=== PATIENT | male | born 1980 | race Caucasian/White ===

== ENCOUNTER 2018-08-28 11:37 | Emergency (ER) | payer OTHER ==
[~2018-08-28] VITALS: Ht 190.5 cm; Wt 86.2 kg
--- NOTE | ~2018-08-28 | EKG ---
[place], [place] ELECTROCARDIOGRAM REPORT NAME: TERRANCE BRAUN UNIT #: [id number] ROOM: DOCTOR: EPIPHANY DRAFT REPORT BIRTHDATE: [address] [facility] Test Date: 2018-08-28 Test Time: 12:05:09 Pat Name: TERRANCE BRAUN Department: Room: Gender: [employer]: : 1980 Requested By: VALE HECK Order Number: [id number] Reading MD: Nikolas Hay MD Measurements Intervals [place] Rate: 68 P: -4 [place]: 141 QRS: 32 QRSD: 105 T: 34 QT: 398 QTc: 424 Interpretive Statements Sinus rhythm Left ventricular hypertrophy Electronically Signed On 08-28-2018 13:03:58 PDT by Nikolas Hay MD CM:EKGRPT:ELECTROCARDIOGRAM REPORT [id number] VALE ARGUETA DRAFT REPORT VALE HECK DO
[~2018-08-28 11:37] MED LIST: ACYCLOVIR400 MG PO; ATARAX,VISTARIL50 MG PO; ATARAX25 MG PO; BACTRIM DS 8001 TA1 PO; CARBIDOPA/LEVOD1 TA1 PO; CEPHALEXIN500 M1 PO; CHLORDIAZEPOXID25 M1 PO; Carafate1 GM PO; DAYPRO600 M1 PO; DESENEX1 POW T; DICYCLOMINE HCL20 MG PO; EC NAPROSYN500 MG PO; FLEXERIL10 MG PO; HYDROCODONE BIT1 T11 PO; HYDROXYZINE PAM50 MG PO; KEFLEX500 MG PO; LOMOTIL 0.025 M1 TAB PO; MAXALT10 MG PO; MOTRIN100 M1 PO; MOTRIN800 MG PO; NAPROSYN250 MG PO; NAPROSYN500 MG PO; NKHM; NORCO 325 MG-51 TAB PO; NORFLEX100 MG PO; ONDANSETRON4 MG PO; OXYCODONE5 M1 PO; PARAFON FORTE500 MG PO; PERCOCET 325 MG1 TA2 PO; PROTONIX TR40 MG PO; PROTONIX40 MG PO; SEPTRA DS 800 M1 TAB PO; SOMA350 MG PO; STOMACH PILL; TRAMADOL HCL50 MG PO; TRIMOX500 MG PO; ULTRAM50 MG PO; VICODIN 5/500 505 M1 PO; VICODIN 5/500 505 MG PO; VICODIN 500 MG-1 TAB PO; VICODIN ES 7501 TAB PO; ZOFRAN 4 MG ED2 TAB PO; ZOFRAN ODT8 MG PO; ZOFRAN4 MG PO
[2018-08-28 12:19] LABS: BASO % 0.3 % (0.0-1.0); EOS # 0.1 10*3/uL (0.0-0.4); EOS % 0.9 % (1.0-4.0); HEMATOCRIT 35.8 % (42.0-52.0); HEMOGLOBIN 12.3 g/dl (14.0-18.0); LYMPH # 0.8 10*3/uL (1.3-4.4); LYMPH % 6.8 % (27.0-41.0); MEAN CELL VOLUME 91.8 fl (80.0-94.0); MEAN CORPUSCULAR HGB 31.5 pg (27.0-31.0); MEAN CORPUSCULAR HGB CONC 34.4 g/dl (33.0-37.0); MEAN PLATELET VOLUME 9.6 fl (9.6-12.3); MONO # 0.4 10*3/uL (0.1-1.0); MONO % 3.1 % (3.0-9.0); NEUT # 10.3 10*3/uL (2.3-7.9); NEUT % 88.4 % (47.0-73.0); PLATELET COUNT AUTOMATED 199 10*3/uL (130-400); RED CELL DISTRI WIDTH 13.2 % (0-14.5); WHITE BLOOD COUNT 11.7 10*3/uL (4.8-10.8)
[2018-08-28 12:36] LABS: ALBUMIN 3.4 gm/dl (3.1-4.5); ALKALINE PHOSPHATASE 40 U/L (45-117); BUN 19 mg/dl (7-24); CHLORIDE 103 mmol/L (98-107); CREATININE 1.15 mg/dL (0.70-1.30); POTASSIUM 3.6 mmol/L (3.5-5.1); SGOT/AST 22 IU/L (3-35); SGPT/ALT 28 U/L (12-78); SODIUM 137 mmol/L (136-145); TOTAL PROTEIN 7.1 gm/dL (6.4-8.2)
[2018-08-28 12:38] LABS: TROPONIN I < 0.015 ng/ml (<0.045)
[2018-08-28] MEDS ORDERED: LEVAQUIN750 M1 PO (13:25)
[2018-08-28] MEDS ORDERED: Motrin,Rufen800 MG PO (13:25)
== END 2018-08-28 13:57 | disposition home or self-care (01) ==
LOC: ED 11:37
PROVIDERS: Emergency Medicine
DX: J18.0 Bronchopneumonia, unspecified organism (principal); F17.200 Nicotine dependence, unspecified, uncomplicated; Z88.1 Allergy status to other antibiotic agents

== ENCOUNTER → 2018-08-31 | Outpatient (CLI) | payer OTHER ==
[~2018-08-31] MED LIST changes: +LEVAQUIN750 M1 PO; +Motrin,Rufen800 MG PO
== END | disposition home or self-care (01) ==
LOC: RESCLI 14:09
DX: J18.1 Lobar pneumonia, unspecified organism (principal); M79.10 Myalgia, unspecified site; F17.210 Nicotine dependence, cigarettes, uncomplicated; Z71.6 Tobacco abuse counseling; Z79.899 Other long term (current) drug therapy; Z88.8 Allergy status to other drugs, medicaments and biological substances

== ENCOUNTER → 2018-12-28 | Outpatient (CLI) | payer OTHER | END | disposition home or self-care (01) | LOC: RESCLI 02:47 | DX: M25.462 Effusion, left knee (principal); F17.210 Nicotine dependence, cigarettes, uncomplicated; Z79.899 Other long term (current) drug therapy; Z88.8 Allergy status to other drugs, medicaments and biological substances; V89.2XXD Person injured in unspecified motor-vehicle accident, traffic, subsequent encounter ==

== ENCOUNTER → 2019-08-11 | Outpatient (CLI) | payer OTHER | END | disposition home or self-care (01) | LOC: RESCLI 02:37 | DX: E78.5 Hyperlipidemia, unspecified (principal); N52.9 Male erectile dysfunction, unspecified; N50.819 Testicular pain, unspecified; G89.29 Other chronic pain; Z79.899 Other long term (current) drug therapy ==

== ENCOUNTER 2019-08-31 21:05 | Inpatient (IN) | payer OTHER ==
[~2019-08-31] VITALS: Ht 185.4 cm; Wt 86.2 kg
--- NOTE | ~2019-08-31 | EKG ---
[place], [place] ELECTROCARDIOGRAM REPORT NAME: TERRANCE BRAUN UNIT #: [id number] ROOM: [facility] DOCTOR: EPIPHANY DRAFT REPORT BIRTHDATE: [birth year] [facility] Test Date: 2019-08-31 Test Time: 23:21:27 Pat Name: TERRANCE BRAUN Department: Room: [facility] Gender: M Pediatrician/Medical Doctor: Andree Pelayo : 1980 Requested By: EMILI HOOPER Order Number: [id number] Reading MD: Kristin Grigsby MD Measurements Intervals [place] Rate: 81 P: 20 [place]: 136 QRS: 42 QRSD: 101 T: 37 QT: 364 QTc: 423 Interpretive Statements Sinus rhythm ST elev, probable normal early repol pattern Compared to ECG 06/19/2019 03:25:11 ST (T wave) deviation now present Electronically Signed On 09-01-2019 6:03:08 PDT by Kristin Grigsby MD CM:EKGRPT:ELECTROCARDIOGRAM REPORT [id number] EMILI HOOPER MD EPIPHANY DRAFT REPORT EMILI HOOPER MD
--- NOTE | ~2019-08-31 | PR ---
[place], [place] PROGRESS NOTE NAME: TERRANCE BRAUN [facility] #: [id number] UNIT #: [id number] ROOM: 528 DOCTOR: CASE ARMIJO MD,GLADYS BIRTHDATE: [birth year] DOS: 09/03/2019 SUBJECTIVE: He has been noted comfortable at this time without any acute distress. Cough has been noted intermittent with some sputum expectoration. Denies symptoms of chest pain, fever or chills. Denies symptoms of hemoptysis, nausea or vomiting. OBJECTIVE: VITAL SIGNS: Normal temperature, respiratory rate 20, heart rate 73, blood pressure 123/71. Pulse ox saturation on room air was 91% saturation recorded. HEENT: Examination shows head was atraumatic. EYES: No icterus. NECK: Supple. CARDIOVASCULAR: S1, S2 is audible. LUNGS: The patient was noted without any wheeze or crackle at the present time. ABDOMEN: Soft, nontender. Bowel sounds present. EXTREMITIES: No new change. IMAGING STUDIES: The chest x-ray yesterday noted with pulmonary infiltration, which has been noted decreased, but not completely resolved. The cultures of the bronchial washing noted light growth of MRSA. IMPRESSION: The patient with acute pneumonia, most likely from aspiration with methicillin-resistant Staphylococcus aureus with acute kidney injury, related to the illicit drugs or cocaine and the fentanyl. PLAN OF MANAGEMENT: Continuation of antibiotics, bronchodilators. Repeat chest x-ray in the morning to be done to assess the patient's current progression of the pulmonary infiltration and pneumonia. Based on that the patient's discharge planning could be started. Other supportive therapy, plan of management in the meantime to be continued. Usual medical management and other therapies. GLADYS WILLOUGHBY MD CM:PNTRANS 1402 [id number] GLADYS ARMIJO MD 09/03/19 1413 interface
--- NOTE | ~2019-08-31 | PR ---
[place], [place] PROGRESS NOTE NAME[id number] UNIT #: [id number] ROOM: 528 DOCTOR: CASE ARMIJO MD,GLADYS BIRTHDATE: [birth year] DOS: 09/05/2019 SUBJECTIVE: He has been doing well with current treatment with acute respiratory symptom, feeling better. Denies symptoms of chest pain, fever or chills at the present time. OBJECTIVE: VITAL SIGNS: Temperature recorded normal temperature, respiratory rate 18, heart rate 86, and blood pressure 144/86. Pulse oxygen saturation on room air 97% saturation. HEENT: Examination shows head was atraumatic. Eyes nonicterus. NECK: Supple. CARDIOVASCULAR: S1, S2 audible. LUNGS: The patient was noted without any wheeze or crackles. ABDOMEN: Soft, nontender. Bowel sounds present. IMPRESSION: 1. Resolving acute pneumonia. Radiologic ____ patient with MRSA. 2. Acute drug overdose, which has been improved. 3. Hemoptysis, resolved secondary to current acute pneumonia on admission. PLAN OF MANAGEMENT: No changes from the pulmonary standpoint. Discharge planning per primary care physician is pending. Continue other therapy, plan of management, care plan and treatment. GLADYS WILLOUGHBY MD CM:PNTRANS [id number] GLADYS ARMIJO MD 09/05/191811 interface
--- NOTE | ~2019-08-31 | PROC NOTE ---
[place], [place] PROCEDURE NOTE NAME: TERRANCE BRAUN UNIT #: [id number] ROOM: [facility] DOCTOR: CASE ARMIJO MD,GLADYS BIRTHDATE: [birth year] DOS: 09/01/2019 BRONCHOSCOPY REPORT PREOPERATIVE DIAGNOSES: The patient with hemoptysis, abnormal CT scan of chest with polysubstance drug overdose. POSTOPERATIVE DIAGNOSES: 1. There were no endobronchial lesions. 2. Small amount of secretion, which was noted blood-tinged with mucus secretions arising from the right lower lobe. 3. Endobronchial subsegment, there was no evidence of acute hemoptysis. COMPLICATIONS: None. PROCEDURE DESCRIPTION: Informed consent obtained from the patient. The patient was brought to the OR and placed in supine position. Conscious sedation administered by the Anesthesia Department. After that, airway introduced into the mouth. Bronchoscope advanced into the airway into laryngeal area. Epiglottis and vocal cords, were moving symmetrically with movements. Bronchoscope advanced to vocal cord and lower part of the tracheal lumen shows some clotted blood, only small amount mixed with mucus possibility of purulent secretion, which was tracking from the right lower lobe bronchial opening. There were no endobronchial obstructive lesion. After clearing secretions, no active bleeding noted in the right upper, right middle, right lower lobe bronchi were noted scattered amount of secretion without evidence of bleeding or other abnormalities. The bronchial washing was collected for cultures. The BAL specimen was also obtained in view of the right lower lobe, which will be sent for cultures and cell differential analysis. At this time, the patient does not require any changes in treatment, which was ordered previously based on the current bronchoscopy findings, monitor for any further hemoptysis, will be made. GLADYS WILLOUGHBY MD CM:PROCNOTE:PROCEDURE NOTE [id number] [id number] GLADYS ARMIJO MD
--- NOTE | ~2019-08-31 | PR ---
[place], [place] PROGRESS NOTE NAME: TERRANCE BRAUN [facility] #: [id number] UNIT #: [id number] ROOM: 528 DOCTOR: CASE ARMIJO MD,GLADYS BIRTHDATE: [birth year] DOS: 09/02/2019 SUBJECTIVE: The patient has been noted comfortable at this time, but complaining of body aches, most likely withdrawal of the illicit drug use by the patient. He has not been noted any further episodes of hemoptysis. Bronchoscopy done, which suggested BAL specimen was also obtained. He has not been reported any symptoms of acute chest pain, fever or chills as well. He had not been reporting any symptoms of headache or diplopia. Denies symptoms of nausea or vomiting. Remaining systems were reviewed with the patient, they were noted all negative. OBJECTIVE: VITAL SIGNS: Normal temperature, respiratory rate of 18, heart rate 79, blood pressure 112/58. Pulse oxygen saturation on 2 L nasal cannula 96% saturation. HEENT: Examination shows head was atraumatic. Eyes nonicterus. NECK: Supple. CARDIOVASCULAR: S1, S2 is audible. LUNGS: Scattered crackles in the lungs. ABDOMEN: Soft, nontender. Bowel sounds present. EXTREMITIES: The patient was noted without any wheezing. Scattered crackles of the lungs. ABDOMEN: Soft, nontender. Bowel sounds present. EXTREMITIES: The patient was noted without any edema, clubbing, or cyanosis. MUSCULOSKELETAL: Noted without any acute deformities. CENTRAL NERVOUS SYSTEM: Generally intact. LABORATORY DATA: Culture of the bronchial washing preliminary noted as normal mariaa. Final cultures are pending. Gram stain many white blood cells, epithelial cells, many gram-positive cocci in pairs, chains and clusters. The CBC that was done this morning: WBC count normal, hemoglobin 11.4, platelet count were normal. BMP done this morning noted normal BUN and creatinine, sodium, 131. The BAL specimen that was done yesterday noted 88% neutrophils. IMPRESSION: The patient with possibility of acute pneumonia, inflammatory condition with current pulmonary infiltration was noted with history of illicit drug use and hemoptysis as well. ____ used by the patient was also noted. PLAN OF MANAGEMENT: To await for the culture. All the bronchial washing. Continue the patient's current other medical treatment. Obtain a chest x-ray, PA and lateral view today to assess the progression of pulmonary infiltration. Usual care, other supportive therapy, plan of management, and care plan of treatment. [place], [place] PROGRESS NOTE NAME: TERRANCE BRAUN UNIT #: [id number] ROOM: 528 DOCTOR: GLADYS JENSEN MD BIRTHDATE: [birth year] GLADYS WILLOUGHBY MD CM:PNTRANS [id number] GLADYS ARMIJO MD 09/02/19 233 interface
--- NOTE | ~2019-08-31 | CON ---
[place], [place] REPORT OF CONSULTATION NAME: TERRANCE BRAUN UNIT #: [id number] ROOM: [facility] DOCTOR: CASE ARMIJO MD,GLADYS BIRTHDATE: [birth year] DOS: 09/01/2019 PULMONARY CONSULTATION, EVALUATION AND MANAGEMENT REASON FOR CONSULTATION: The consultation was done for assessment of the current acute respiratory failure with drug overdose, change in mental status, abnormal CT scan of the chest, and hemoptysis. HISTORY OF PRESENT ILLNESS: This is a 39-year-old white male patient with a history known for an illicit drug use that includes use of cocaine, crack, heroin and other illicit drugs. He has been brought to the hospital. The patient has been reported use of the fentanyl overdose and that he has been smoking in the evening. The patient has been given intranasal Narcan by the ambulance and then also received the Narcan in the Emergency Room. He was noted with a shallow breathing. The pulse oxygen saturation was noted as 98% on 6 liters nasal canula that has been started by the EMS. He has been admitted to the hospital for further care. The patient was noted intermittent change in mental status, drowsiness, sleepiness, arousable later on gradually to vocal commands. He has been noted with finding of hemoptysis one time on ____ by the nursing staff. He has not been noted any further episodes of hemoptysis at this time and not noted any acute distress. Pulse ox saturation on seeing recorded by the EMS as 81%. REVIEW OF SYSTEMS: CONSTITUTIONAL SYMPTOMS: The patient was noted still somewhat drowsy with wakefulness at times and not able to accurately get the history at this time in the Intensive Care Unit. PAST MEDICAL HISTORY: Noted with: 1. History of illicit drug use in the form of crack cocaine, heroin, fentanyl, smoking, and others. 2. History of tobacco use as well. SOCIAL HISTORY: Recorded as history of socially drinking alcohol, use of illicit drugs and tobacco use, a pack of cigarettes per day stated by the patient. FAMILY HISTORY: Noted father with history of methamphetamine dependence and abuse. Mother is living and reported as healthy. All the history was obtained by the medical staff physician and other physicians. PAST SURGICAL HISTORY: Reported some kind of surgery on the skeleton or bone, but details were unknown at this time. HOME MEDICATIONS: Reported as none. CURRENT MEDICATIONS: Administered during this hospitalization were noted as multivitamin, Lovenox for DVT prophylaxis, ibuprofen, Rocephin, and Zithromax. DRUG ALLERGIES: REPORTED ALLERGIC TO VANCOMYCIN. ALLERGIC DRUG REACTIONS [place], [place] REPORT OF CONSULTATION NAME: TERRANCE BRAUN UNIT #: [id number] ROOM: [facility] DOCTOR: GLADYS JENSEN MD BIRTHDATE: [birth year] WERE UNKNOWN. PHYSICAL EXAMINATION: GENERAL: A 39-year-old male patient noted arousable to vocal commands, mild drowsiness. Height of 6 feet 1 inch, weight 190 pounds, BMI 25. VITAL SIGNS: For the patient, which were recorded showed the temperature noted 100.8 degrees Fahrenheit to normal temperature and low-grade 99.9 degree Fahrenheit. The respiratory rate ranging between 18-15, heart rate 75, blood pressure 102/48-104/53. Pulse oxygen saturation recorded 81% on room air by the EMS, later on room air 88%, currently on nasal cannula of 3 liters this morning as 98%, earlier required 6 liters of oxygen to 100% nonrebreather mask. HEENT: Examination shows head was atraumatic. Eyes nonicterus. NECK: Supple. CARDIOVASCULAR SYSTEM: S1, S2 is audible. LUNGS: Noted with decreased breath sounds with questionable crackles without any wheeze. ABDOMEN: Soft, flat, nontender. Bowel sounds present. EXTREMITIES: Without edema, clubbing, cyanosis. VISIBLE SKIN: No lesions or rashes. CENTRAL NERVOUS SYSTEM: The patient has somewhat drowsiness, but the patient is moving all the extremities upon vocal commands. MUSCULOSKELETAL: Without any acute deformities. LABORATORY DATA: Assessed. CBC of 08/31/2019 in the Emergency Department; WBC count 13.9, hemoglobin 13.2, platelet count normal. CMP of 09/10/2019 was noted as normal BUN and creatinine, sodium 128. Remaining electrolytes and LFTs normal. The salicylate level 2.1, lactic acid 1.1 yesterday. Urine drug screen positive for amphetamines, cocaine, and opiates. CBC this morning; WBC count 11.7, hemoglobin 13.4, platelet count normal. PT/PTT normal this morning. CMP this morning; sodium 128. CPK this morning was obtained and noted at 253. Troponin first set was noted negative and the second set was pending. Chest x-ray that was done shows evidence of patchy infiltration noted in the lungs. CT scan of the chest that was done without contrast was personally reviewed, shows multiple areas of consolidation, alveolar filling noted usually in the central distribution as well as in the lower lungs. There were no pleural effusions. There was no significant pleural fluid. Minimal pleural fluid noted if it is on the right side. IMPRESSION: 1. The patient who has been currently noted acute drug overdose, current pulmonary abnormalities, acute hypoxic respiratory failure with polysubstance abuse, resulting in current pulmonary changes related to the cocaine, pulmonary edema resulting from the use of the opiates and others is very likely cause. 2. Rule out acute pneumonia and pulmonary hemorrhage resulting from the crack cocaine. 3. The patient with history of chronic nicotine dependence as well. PLAN OF CARE: Bronchoscopy planned to be done for assessment of the hemoptysis and current pulmonary abnormalities. Oxygen supplementation to continue maintain pulse ox 92% or greater. Monitor mental status closely. Do not feed [place], [place] REPORT OF CONSULTATION NAME: TERRANCE BRAUN UNIT #: [id number] ROOM: [facility] DOCTOR: GLADYS JENSEN MD BIRTHDATE: [birth year] the patient until the patient's mental status changes resolved completely to prevent aspirations. Bronchodilator to help mobilize secretions. DVT prophylaxis at this time will be continued unless it has been found that the patient has been noted active hemoptysis on bronchoscopy. Lovenox use will be discontinued. Supportive therapy, plan of management. DuoNeb q.i.d. dosing to help mobilize secretions. Continue empiric antibiotics and monitoring other culture results. Order the ESR for the patient as well. Other therapy, plan of management. Additional treatment changes continued to be made based on progression of the illness. Various other differential diagnosis of hemoptysis resulting for pulmonary disease remains in consideration. At this time, basic workup only needs to be done in case of any worsening of hemoptysis. Further additional workup needs to be performed accordingly. GLADYS WILLOUGHBY MD CM:CONSTR:REPORT OF CONSULTATION 1339 09/02/19 0021 interface
--- NOTE | ~2019-08-31 | PR ---
[place], [place] PROGRESS NOTE NAME: [facility]RAUN [id number] UN[facility] #: [id number] ROOM: 528 DOCTOR: CASE ARMIJO MD,GLADYS BIRTHDATE: [birth year] DOS: 09/04/2019 PULMONARY PROGRESS NOTE SUBJECTIVE: The patient has been noted comfortable at this time, resting on the bed this morning of assessment. He has been still noted with a cough, complaining of weakness and fatigue. Denies symptoms of fever or chills. Denies symptoms of abdominal pain. OBJECTIVE: VITAL SIGNS: For the patient which were recorded shows the temperature noted as normal. The respiratory rate recorded as 14, heart rate of 59, blood pressure of 120/61 recorded at midnight. Pulse oxygen saturation recorded on room air 96% saturation. HEENT: Examination shows head was atraumatic. Eyes nonicterus. NECK: Supple. CARDIOVASCULAR: S1, S2 is audible. LUNGS: Noted with scattered crackles, no wheeze. ABDOMEN: Soft, nontender. Bowel sounds present. EXTREMITIES: No new change. LABORATORY DATA: The patient's chest x-ray completed, PA and lateral view, this morning with resolving acute pulmonary infiltration in the lungs. Acid fast bacilli was noted negative smear with pending culture results. IMPRESSION: The patient resolution of hemoptysis, resolving acute pneumonia with methicillin-resistant Staphylococcus aureus, acute drug overdose on this admission was noted as well. PLAN OF TREATMENT: Discharge planning could be started with conversion to oral medication for the MRSA infection when it was necessary. Continue current other therapy, plan of management in progress, usual care. GLADYS WILLOUGHBY MD CM:PNTRANS 1034 [id number] GLADYS ARMIJO MD 09/04/19 1358 interface
[2019-08-31 21:26] VITALS: BP 116/67
[2019-08-31 23:34] LABS: BASO % 0.3 % (0.0-1.0); EOS # 0.1 10*3/uL (0.0-0.4); EOS % 0.4 % (1.0-4.0); HEMATOCRIT 39.4 % (42.0-52.0); HEMOGLOBIN 13.2 g/dl (14.0-18.0); LYMPH # 0.7 10*3/uL (1.3-4.4); MEAN CELL VOLUME 91.4 fl (80.0-94.0); MEAN CORPUSCULAR HGB 30.6 pg (27.0-31.0); MEAN CORPUSCULAR HGB CONC 33.5 g/dl (33.0-37.0); MEAN PLATELET VOLUME 9.8 fl (9.6-12.3); MONO % 7.3 % (3.0-9.0); NEUT % 86.5 % (47.0-73.0); PLATELET COUNT AUTOMATED 241 10*3/uL (130-400); RED BLOOD COUNT 4.31 10*6/uL (4.50-5.90); RED CELL DISTRI WIDTH 12.3 % (0-14.5); WHITE BLOOD COUNT 13.9 10*3/uL (4.8-10.8)
[2019-08-31 23:37] LABS: ALBUMIN 3.2 gm/dl (3.1-4.5); ALKALINE PHOSPHATASE 47 U/L (45-117); BUN 13 mg/dl (7-24); CHLORIDE 96 mmol/L (98-107); CREATININE 1.04 mg/dL (0.70-1.30); POTASSIUM 4.1 mmol/L (3.5-5.1); SGOT/AST 29 IU/L (3-35); SGPT/ALT 29 U/L (12-78); SODIUM 128 mmol/L (136-145); TOTAL PROTEIN 7.1 gm/dL (6.4-8.2); TROPONIN I 0.037 ng/ml (<0.045)
[2019-08-31 23:44] LABS: ACETAMINOPHEN (TYLENOL) < 5.0 ug/ml (10-30); ETHYL ALCOHOL < 3.0 mg/dl (<3)
[2019-08-31 23:57] VITALS: BP 129/77
[2019-09-01] VITALS (8 sets, daily range): BP systolic 97–128; BP diastolic 46–75
[2019-09-01 02:17] LABS: BILIRUBIN NEGATIVE (NEGATIVE); BLOOD NEGATIVE (NEGATIVE); CLARITY CLEAR (CLEAR); COLOR YELLOW (YELLOW); GLUCOSE TRACE (NEGATIVE); KETONE NEGATIVE (NEGATIVE); LEUKO ESTERASE NEGATIVE (NEGATIVE); NITRITE NEGATIVE (NEGATIVE); PH 6.5 (5.0-9.0); SPECIFIC GRAVITY 1.015 (1.005-1.030); UROBILINOGEN 0.2 E.U./dl (0.2-1.0)
[2019-09-01 02:25] LABS: URINE AMPHETAMINES > 1000 (1000ng/ml); URINE BARBITURATES < 200 (200ng/ml); URINE BENZODIAZEPINES < 200 (200ng/ml); URINE CANNABINOIDS (THC) < 50 (50ng/ml); URINE COCAINE > 300 (300ng/ml); URINE METHADONE < 300 (300ng/ml); URINE OPIATES > 300 (300ng/ml)
[2019-09-01 02:26] LABS: URINE PHENCYCLIDINE < 25 (25ng/ml)
[2019-09-01 09:05] LABS: BASO # 0.1 10*3/uL (0.0-0.1); BASO % 0.4 % (0.0-1.0); EOS # 0.1 10*3/uL (0.0-0.4); HEMATOCRIT 39.9 % (42.0-52.0); HEMOGLOBIN 13.4 g/dl (14.0-18.0); LYMPH # 1.2 10*3/uL (1.3-4.4); LYMPH % 10.2 % (27.0-41.0); MEAN CELL VOLUME 91.3 fl (80.0-94.0); MEAN CORPUSCULAR HGB 30.7 pg (27.0-31.0); MEAN CORPUSCULAR HGB CONC 33.6 g/dl (33.0-37.0); MEAN PLATELET VOLUME 9.6 fl (9.6-12.3); MONO # 0.8 10*3/uL (0.1-1.0); MONO % 6.9 % (3.0-9.0); NEUT # 9.5 10*3/uL (2.3-7.9); NEUT % 81.2 % (47.0-73.0); PLATELET COUNT AUTOMATED 205 10*3/uL (130-400); RED BLOOD COUNT 4.37 10*6/uL (4.50-5.90); RED CELL DISTRI WIDTH 12.2 % (0-14.5); WHITE BLOOD COUNT 11.7 10*3/uL (4.8-10.8)
[2019-09-01 09:16] LABS: ACT PARTIAL THROMBO TIME 32.5 SECONDS (20.0-32.1)
[2019-09-01 09:22] LABS: ALBUMIN 2.9 gm/dl (3.1-4.5); ALKALINE PHOSPHATASE 43 U/L (45-117); BUN 11 mg/dl (7-24); CHLORIDE 95 mmol/L (98-107); CHOLESTEROL 209 mg/dL (<200); CREATININE 0.95 mg/dL (0.70-1.30); HDL CHOLESTEROL 41 mg/dl (40-60); LDL CHOLESTEROL 155 mg/dL (9-159); PHOSPHOROUS 3.1 mg/dL (2.5-4.9); POTASSIUM 4.4 mmol/L (3.5-5.1); SGOT/AST 18 IU/L (3-35); SGPT/ALT 22 U/L (12-78); SODIUM 128 mmol/L (136-145); TOTAL PROTEIN 6.6 gm/dL (6.4-8.2); TRIGLYCERIDES 67 mg/dl (<150); VLDL CHOLESTEROL 13 mg/dL (6-40)
[2019-09-01 09:23] LABS: TROPONIN I < 0.015 ng/ml (<0.045)
[2019-09-01 09:28] LABS: THYROID STIM HORMONE (HS) 0.619 uIU/ml (0.358-4.75)
[2019-09-01 10:08] LABS: VITAMIN D, 25-HYDROXY 16.6 ng/mL (30-100)
[2019-09-01 12:39] LABS: BF LYMPHOCYTES 2 %; BF MACROPHAGES 6 %; BF MONOCYTES 4 %; BF NEUTROPHILS 88 %
[2019-09-01 12:54] LABS: CPK 231 U/L (39-308)
[2019-09-01 12:55] LABS: TROPONIN I < 0.015 ng/ml (<0.045)
[2019-09-02] VITALS: BP 111/60
[2019-09-02 05:42] LABS: BUN 8 mg/dl (7-24); CHLORIDE 99 mmol/L (98-107); CREATININE 0.88 mg/dL (0.70-1.30); SODIUM 131 mmol/L (136-145)
[2019-09-02 06:13] LABS: BASO % 0.5 % (0.0-1.0); EOS # 0.4 10*3/uL (0.0-0.4); HEMATOCRIT 34.7 % (42.0-52.0); HEMOGLOBIN 11.4 g/dl (14.0-18.0); LYMPH # 0.7 10*3/uL (1.3-4.4); LYMPH % 7.4 % (27.0-41.0); MEAN CELL VOLUME 91.3 fl (80.0-94.0); MEAN CORPUSCULAR HGB CONC 32.9 g/dl (33.0-37.0); MEAN PLATELET VOLUME 10.3 fl (9.6-12.3); MONO # 0.7 10*3/uL (0.1-1.0); MONO % 7.4 % (3.0-9.0); NEUT # 7.1 10*3/uL (2.3-7.9); NEUT % 80.5 % (47.0-73.0); PLATELET COUNT AUTOMATED 203 10*3/uL (130-400); RED CELL DISTRI WIDTH 12.2 % (0-14.5); WHITE BLOOD COUNT 8.8 10*3/uL (4.8-10.8)
[2019-09-02 08:00] VITALS: BP 111/58
[2019-09-02 12:00] VITALS: BP 102/58
[2019-09-02 14:06] LABS: ACID FAST SPEC PROCESSING Concentration (.)
[2019-09-02 16:00] VITALS: BP 124/64
[2019-09-02 20:00] VITALS: BP 108/67
[2019-09-03] VITALS: BP 121/62
[2019-09-03 07:16] LABS: BASO % 0.4 % (0.0-1.0); EOS # 0.5 10*3/uL (0.0-0.4); EOS % 6.2 % (1.0-4.0); HEMATOCRIT 33.3 % (42.0-52.0); HEMOGLOBIN 11.1 g/dl (14.0-18.0); LYMPH # 1.1 10*3/uL (1.3-4.4); LYMPH % 14.7 % (27.0-41.0); MEAN CORPUSCULAR HGB 30.7 pg (27.0-31.0); MEAN CORPUSCULAR HGB CONC 33.3 g/dl (33.0-37.0); MEAN PLATELET VOLUME 9.5 fl (9.6-12.3); MONO # 0.7 10*3/uL (0.1-1.0); MONO % 9.1 % (3.0-9.0); NEUT # 5.2 10*3/uL (2.3-7.9); NEUT % 69.5 % (47.0-73.0); PLATELET COUNT AUTOMATED 209 10*3/uL (130-400); RED BLOOD COUNT 3.62 10*6/uL (4.50-5.90); RED CELL DISTRI WIDTH 12.3 % (0-14.5); WHITE BLOOD COUNT 7.5 10*3/uL (4.8-10.8)
[2019-09-03 07:57] LABS: BUN 9 mg/dl (7-24); CHLORIDE 105 mmol/L (98-107); CREATININE 0.83 mg/dL (0.70-1.30); SODIUM 136 mmol/L (136-145)
[2019-09-03 08:00] VITALS: BP 123/71
[2019-09-03 12:00] VITALS: BP 119/72
[2019-09-03 16:00] VITALS: BP 123/72
[2019-09-03 20:00] VITALS: BP 117/60; BP 130/82
[2019-09-04] VITALS: BP 120/61
[2019-09-04 07:05] LABS: BASO % 0.5 % (0.0-1.0); EOS # 0.4 10*3/uL (0.0-0.4); EOS % 5.6 % (1.0-4.0); HEMATOCRIT 36.9 % (42.0-52.0); HEMOGLOBIN 12.5 g/dl (14.0-18.0); LYMPH # 1.3 10*3/uL (1.3-4.4); LYMPH % 16.5 % (27.0-41.0); MEAN CELL VOLUME 90.7 fl (80.0-94.0); MEAN CORPUSCULAR HGB 30.7 pg (27.0-31.0); MEAN CORPUSCULAR HGB CONC 33.9 g/dl (33.0-37.0); MEAN PLATELET VOLUME 9.5 fl (9.6-12.3); MONO # 0.8 10*3/uL (0.1-1.0); MONO % 9.9 % (3.0-9.0); NEUT # 5.1 10*3/uL (2.3-7.9); NEUT % 67.2 % (47.0-73.0); PLATELET COUNT AUTOMATED 258 10*3/uL (130-400); RED BLOOD COUNT 4.07 10*6/uL (4.50-5.90); WHITE BLOOD COUNT 7.6 10*3/uL (4.8-10.8)
[2019-09-04 07:22] LABS: CHLORIDE 105 mmol/L (98-107); POTASSIUM 4.3 mmol/L (3.5-5.1); SODIUM 136 mmol/L (136-145)
[2019-09-04 07:28] LABS: BUN 8 mg/dl (7-24); CREATININE 0.81 mg/dL (0.70-1.30)
[2019-09-04 08:00] VITALS: BP 130/72
[2019-09-04 10:00] VITALS: BP 120/60
[2019-09-04 10:07] LABS: ANGIOTENSIN-CONVERTING ENZYME 23 U/L (14-82)
[2019-09-04 16:00] VITALS: BP 120/63
[2019-09-04 16:07] LABS: ATYPICAL PANCA <1:20 titer (Neg:<1:20); CYTOPLASMIC (C-ANCA) <1:20 titer (Neg:<1:20)
[2019-09-04 20:00] VITALS: BP 120/67
[2019-09-05] VITALS: BP 137/78
[2019-09-05 08:00] VITALS: BP 144/86
[2019-09-05 12:00] VITALS: BP 141/85
[2019-09-05] MEDS ORDERED: DOXYCYCLINE100 M3 PO (17:03)
[2019-10-13 10:09] LABS: ACID FAST CULTURE Negative (.)
== END 2019-09-05 17:56 | disposition home or self-care (01) | DRG 720 ==
LOC: ED 21:05 → ICCU 23:52 → EDHOLD 23:52 → 5E 23:52 → ICCU 09-01 00:15 → 5E 09-02 14:45
PROVIDERS: Emergency Medicine Emergency Medical Services; Hospitalist; Internal Medicine; Internal Medicine Critical Care Medicine; Student in an Organized Health Care Education/Training Program; ADMIT Internal Medicine
PROC: 0B9F8ZX Drainage of Right Lower Lung Lobe, Via Natural or Artificial Opening Endoscopic, Diagnostic (ICD-10-PCS; principal; 2019-09-01)
PROC: 0B998ZZ Drainage of Lingula Bronchus, Via Natural or Artificial Opening Endoscopic (ICD-10-PCS; 2019-09-01)
PROC: 0B948ZZ Drainage of Right Upper Lobe Bronchus, Via Natural or Artificial Opening Endoscopic (ICD-10-PCS; 2019-09-01)
PROC: 0B988ZZ Drainage of Left Upper Lobe Bronchus, Via Natural or Artificial Opening Endoscopic (ICD-10-PCS; 2019-09-01)
PROC: 0B958ZZ Drainage of Right Middle Lobe Bronchus, Via Natural or Artificial Opening Endoscopic (ICD-10-PCS; 2019-09-01)
PROC: 0B938ZZ Drainage of Right Main Bronchus, Via Natural or Artificial Opening Endoscopic (ICD-10-PCS; 2019-09-01)
PROC: 0B978ZZ Drainage of Left Main Bronchus, Via Natural or Artificial Opening Endoscopic (ICD-10-PCS; 2019-09-01)
PROC: 0B968ZZ Drainage of Right Lower Lobe Bronchus, Via Natural or Artificial Opening Endoscopic (ICD-10-PCS; 2019-09-01)
PROC: 0B9B8ZZ Drainage of Left Lower Lobe Bronchus, Via Natural or Artificial Opening Endoscopic (ICD-10-PCS; 2019-09-01)
DX: A41.9 Sepsis, unspecified organism (principal); T40.4X4A Poisoning by other synthetic narcotics, undetermined, initial encounter; E87.1 Hypo-osmolality and hyponatremia; E43 Unspecified severe protein-calorie malnutrition; J15.212 Pneumonia due to Methicillin resistant Staphylococcus aureus; D64.9 Anemia, unspecified; F11.23 Opioid dependence with withdrawal; E87.8 Other disorders of electrolyte and fluid balance, not elsewhere classified; J96.01 Acute respiratory failure with hypoxia; F32.9 Major depressive disorder, single episode, unspecified; E55.9 Vitamin D deficiency, unspecified; E53.8 Deficiency of other specified B group vitamins; E78.5 Hyperlipidemia, unspecified; F17.200 Nicotine dependence, unspecified, uncomplicated; Z88.1 Allergy status to other antibiotic agents; Z87.11 Personal history of peptic ulcer disease; Z87.01 Personal history of pneumonia (recurrent); Z82.49 Family history of ischemic heart disease and other diseases of the circulatory system; Z82.5 Family history of asthma and other chronic lower respiratory diseases; Z81.3 Family history of other psychoactive substance abuse and dependence; Y92.89 Other specified places as the place of occurrence of the external cause; Z68.25 Body mass index [BMI] 25.0-25.9, adult

== ENCOUNTER 2019-12-19 18:25 | Emergency (ER) | payer OTHER ==
[~2019-12-19 18:25] MED LIST changes: +DOXYCYCLINE100 M3 PO
[2019-12-19 19:07] LABS: ALBUMIN 3.8 gm/dl (3.1-4.5); ALKALINE PHOSPHATASE 57 U/L (45-117); BUN 24 mg/dl (7-24); CHLORIDE 99 mmol/L (98-107); CREATININE 1.51 mg/dL (0.70-1.30); POTASSIUM 4.1 mmol/L (3.5-5.1); SGOT/AST 22 IU/L (3-35); SGPT/ALT 24 U/L (12-78); SODIUM 134 mmol/L (136-145)
[2019-12-19 19:11] LABS: ETHYL ALCOHOL < 3.0 mg/dl (<3)
[2019-12-19 19:16] LABS: BASO # 0.1 10*3/uL (0.0-0.1); BASO % 0.7 % (0.0-1.0); EOS # 0.6 10*3/uL (0.0-0.4); EOS % 6.9 % (1.0-4.0); HEMATOCRIT 38.6 % (42.0-52.0); HEMOGLOBIN 12.5 g/dl (14.0-18.0); LYMPH # 1.4 10*3/uL (1.3-4.4); LYMPH % 16.7 % (27.0-41.0); MEAN CORPUSCULAR HGB 29.5 pg (27.0-31.0); MEAN CORPUSCULAR HGB CONC 32.4 g/dl (33.0-37.0); MEAN PLATELET VOLUME 9.1 fl (9.6-12.3); MONO # 0.8 10*3/uL (0.1-1.0); MONO % 9.6 % (3.0-9.0); NEUT # 5.6 10*3/uL (2.3-7.9); PLATELET COUNT AUTOMATED 256 10*3/uL (130-400); RED BLOOD COUNT 4.24 10*6/uL (4.50-5.90); RED CELL DISTRI WIDTH 12.9 % (0-14.5); WHITE BLOOD COUNT 8.4 10*3/uL (4.8-10.8)
== END 2019-12-19 20:03 | disposition left against medical advice (07) ==
LOC: ED 18:25
PROVIDERS: Emergency Medicine
DX: T40.1X1A Poisoning by heroin, accidental (unintentional), initial encounter (principal); F17.200 Nicotine dependence, unspecified, uncomplicated; F41.9 Anxiety disorder, unspecified; K21.9 Gastro-esophageal reflux disease without esophagitis; F32.9 Major depressive disorder, single episode, unspecified; G43.909 Migraine, unspecified, not intractable, without status migrainosus; Z79.899 Other long term (current) drug therapy; Z88.8 Allergy status to other drugs, medicaments and biological substances; Y92.89 Other specified places as the place of occurrence of the external cause

== ENCOUNTER 2021-10-05 14:38 | Emergency (ER) | payer OTHER | END 2021-10-05 17:00 | disposition home or self-care (01) | LOC: ED 14:38 | DX: S22.31XA Fracture of one rib, right side, initial encounter for closed fracture (principal); Z88.1 Allergy status to other antibiotic agents; Y08.89XA Assault by other specified means, initial encounter; Y93.89 Activity, other specified; Y92.89 Other specified places as the place of occurrence of the external cause; Y99.8 Other external cause status ==

== ENCOUNTER 2022-07-01 22:36 | Emergency (ER) | payer OTHER ==
[~2022-07-01] VITALS: Ht 190.5 cm; Wt 72.6 kg
== END 2022-07-02 03:39 | disposition home or self-care (01) ==
LOC: ED 22:36
DX: T40.1X1A Poisoning by heroin, accidental (unintentional), initial encounter (principal); E78.5 Hyperlipidemia, unspecified; Z88.1 Allergy status to other antibiotic agents; F17.200 Nicotine dependence, unspecified, uncomplicated; Y92.89 Other specified places as the place of occurrence of the external cause

== ENCOUNTER 2022-11-11 15:18 | Emergency (ER) | payer OTHER ==
[~2022-11-11] VITALS: Ht 187.9 cm; Wt 63.5 kg
[2022-11-11 16:14] LABS: BASO % 0.6 % (0.0-1.0); EOS # 0.2 10*3/uL (0.0-0.4); EOS % 4.5 % (1.0-4.0); HEMATOCRIT 35.4 % (42.0-52.0); LYMPH % 19.1 % (27.0-41.0); MEAN CELL VOLUME 85.3 fl (80.0-94.0); MEAN CORPUSCULAR HGB 29.2 pg (27.0-31.0); MEAN CORPUSCULAR HGB CONC 34.2 g/dl (33.0-37.0); MEAN PLATELET VOLUME 9.4 fl (9.6-12.3); MONO # 0.6 10*3/uL (0.1-1.0); MONO % 10.9 % (3.0-9.0); NEUT # 3.3 10*3/uL (2.3-7.9); NEUT % 64.7 % (47.0-73.0); PLATELET COUNT AUTOMATED 225 10*3/uL (130-400); RED BLOOD COUNT 4.15 10*6/uL (4.50-5.90); RED CELL DISTRI WIDTH 12.9 % (0-14.5); WHITE BLOOD COUNT 5.1 10*3/uL (4.8-10.8)
[2022-11-11 16:31] LABS: ALKALINE PHOSPHATASE 47 U/L (46-116); BUN 15 mg/dl (9-23); CHLORIDE 110 mmol/L (98-107); CREATININE 1.02 mg/dL (0.70-1.30); POTASSIUM 3.9 mmol/L (3.4-5.1); SGPT/ALT 8 U/L (10-49); SODIUM 140 mmol/L (136-145); TOTAL PROTEIN 7.1 gm/dL (6.0-8.0)
[2022-11-11 18:08] LABS: BILIRUBIN Negative (Negative); BLOOD Negative (Negative); CLARITY Clear (Clear); COLOR Yellow (Yellow); GLUCOSE Negative (Negative); KETONE Trace (Negative); LEUKO ESTERASE Negative (Negative); NITRITE Negative (Negative); PH 5.5 (4.5-8.0); SPECIFIC GRAVITY 1.025 (1.001-1.030); UROBILINOGEN 0.2 E.U./dl (0.0-1.0)
[2022-11-11 18:12] LABS: URINE AMPHETAMINES Positive (1000ng/ml); URINE BARBITURATES Negative (200ng/ml); URINE BENZODIAZEPINES Negative (200ng/ml); URINE CANNABINOIDS (THC) Negative (50ng/ml); URINE COCAINE Negative (300ng/ml); URINE METHADONE Negative (300ng/ml); URINE OPIATES Negative (300ng/ml); URINE PHENCYCLIDINE Negative (25ng/ml)
[2022-11-11 19:07] LABS: RBC 0-2 rbc/hpf (0-2)
== END 2022-11-11 19:31 ==
LOC: ED 15:18
PROVIDERS: Nurse Practitioner Family
DX: R07.89 Other chest pain (principal); Z20.822 Contact with and (suspected) exposure to COVID-19; F19.10 Other psychoactive substance abuse, uncomplicated; G43.909 Migraine, unspecified, not intractable, without status migrainosus; Z76.5 Malingerer [conscious simulation]; Z88.1 Allergy status to other antibiotic agents; Z87.891 Personal history of nicotine dependence; Z98.890 Other specified postprocedural states

== ENCOUNTER 2023-10-08 21:35 | Emergency (ER) | payer SELFPAY ==
[~2023-10-08] VITALS: Ht 190.5 cm; Wt 90.7 kg
== END 2023-10-08 23:58 | disposition home or self-care (01) ==
LOC: ED 21:35
DX: T39.1X1A Poisoning by 4-Aminophenol derivatives, accidental (unintentional), initial encounter (principal); R11.0 Nausea; K21.9 Gastro-esophageal reflux disease without esophagitis; F41.9 Anxiety disorder, unspecified; F32.A Depression, unspecified; G43.909 Migraine, unspecified, not intractable, without status migrainosus; Z88.8 Allergy status to other drugs, medicaments and biological substances; Z98.890 Other specified postprocedural states; F17.200 Nicotine dependence, unspecified, uncomplicated; Y92.009 Unspecified place in unspecified non-institutional (private) residence as the place of occurrence of the external cause

== ENCOUNTER 2023-10-09 16:50 | Emergency (ER) | payer MEDICAID | END 2023-10-09 22:07 | disposition home or self-care (01) | LOC: ED 16:50 | DX: T40.601A Poisoning by unspecified narcotics, accidental (unintentional), initial encounter (principal); R40.2A Nontraumatic coma due to underlying condition; R06.81 Apnea, not elsewhere classified; E78.5 Hyperlipidemia, unspecified; F32.A Depression, unspecified; E43 Unspecified severe protein-calorie malnutrition; F17.200 Nicotine dependence, unspecified, uncomplicated; Z88.1 Allergy status to other antibiotic agents; Y92.89 Other specified places as the place of occurrence of the external cause ==

== ENCOUNTER 2023-10-15 13:12 | Emergency (ER) | payer MEDICAID ==
[~2023-10-15] VITALS: Ht 190.5 cm; Wt 90.7 kg
== END 2023-10-15 15:12 | disposition home or self-care (01) ==
LOC: ED 13:12
DX: T40.1X1A Poisoning by heroin, accidental (unintentional), initial encounter (principal); F32.A Depression, unspecified; F41.9 Anxiety disorder, unspecified; G43.909 Migraine, unspecified, not intractable, without status migrainosus; Z88.8 Allergy status to other drugs, medicaments and biological substances; Z98.890 Other specified postprocedural states; F17.200 Nicotine dependence, unspecified, uncomplicated; F14.10 Cocaine abuse, uncomplicated; Y92.89 Other specified places as the place of occurrence of the external cause

== ENCOUNTER → 2023-10-31 | Emergency (ER) | payer MEDICAID ==
[~2023-10-31] VITALS: Ht 190.5 cm; Wt 81.2 kg
== END ==
LOC: ED 19:46
DX: T40.1X1A Poisoning by heroin, accidental (unintentional), initial encounter (principal); R11.0 Nausea; F41.9 Anxiety disorder, unspecified; F32.A Depression, unspecified; G43.909 Migraine, unspecified, not intractable, without status migrainosus; Z88.8 Allergy status to other drugs, medicaments and biological substances; Z98.890 Other specified postprocedural states; F17.200 Nicotine dependence, unspecified, uncomplicated; Y92.009 Unspecified place in unspecified non-institutional (private) residence as the place of occurrence of the external cause

== ENCOUNTER 2024-03-02 19:05 | Emergency (ER) | payer MEDICAID ==
[~2024-03-02] VITALS: Ht 190.5 cm; Wt 79.4 kg
[2024-03-02 19:26] LABS: BASO % 0.5 % (0.0-1.0); EOS # 0.2 10*3/uL (0.0-0.4); EOS % 3.2 % (1.0-4.0); HEMATOCRIT 35.7 % (42.0-52.0); LYMPH # 1.4 10*3/uL (1.3-4.4); LYMPH % 24.7 % (27.0-41.0); MEAN CELL VOLUME 87.1 fl (80.0-94.0); MEAN CORPUSCULAR HGB 28.5 pg (27.0-31.0); MEAN CORPUSCULAR HGB CONC 32.8 g/dl (33.0-37.0); MONO # 0.7 10*3/uL (0.1-1.0); MONO % 13.1 % (3.0-9.0); NEUT # 3.3 10*3/uL (2.3-7.9); NEUT % 58.3 % (47.0-73.0); PLATELET COUNT AUTOMATED 262 10*3/uL (130-400); RED CELL DISTRI WIDTH 13.3 % (0-14.5); WHITE BLOOD COUNT 5.6 10*3/uL (4.8-10.8)
[2024-03-02 19:46] LABS: ALKALINE PHOSPHATASE 44 U/L (46-116); BUN 21 mg/dl (9-23); CHLORIDE 104 mmol/L (98-107); CPK 257 U/L (34-171); LIPASE 27 U/L (12-53); SGPT/ALT 18 U/L (5-49); TOTAL PROTEIN 7.4 gm/dL (6.0-8.0)
[2024-03-02 19:48] LABS: ETHYL ALCOHOL < 3.0 mg/dl (<3)
== END 2024-03-02 21:25 | disposition home or self-care (01) ==
LOC: ED 19:05
PROVIDERS: Internal Medicine
DX: T40.601A Poisoning by unspecified narcotics, accidental (unintentional), initial encounter (principal); F41.9 Anxiety disorder, unspecified; F32.A Depression, unspecified; G43.909 Migraine, unspecified, not intractable, without status migrainosus; Z88.8 Allergy status to other drugs, medicaments and biological substances; Z98.890 Other specified postprocedural states; F17.200 Nicotine dependence, unspecified, uncomplicated; Y92.89 Other specified places as the place of occurrence of the external cause

== ENCOUNTER 2024-03-18 21:44 | Emergency (ER) | payer MEDICAID ==
[~2024-03-18] VITALS: Ht 190.5 cm; Wt 77.1 kg
[2024-03-18 22:29] LABS: BILIRUBIN Negative (Negative); BLOOD Negative (Negative); CLARITY Clear (Clear); COLOR Yellow (Yellow); GLUCOSE Negative (Negative); KETONE Negative (Negative); LEUKO ESTERASE Negative (Negative); NITRITE Negative (Negative); SPECIFIC GRAVITY >= 1.030 (1.001-1.030); UROBILINOGEN 0.2 E.U./dl (0.0-1.0)
[2024-03-18 22:30] LABS: BASO # 0.1 10*3/uL (0.0-0.1); BASO % 0.6 % (0.0-1.0); EOS # 0.3 10*3/uL (0.0-0.4); EOS % 2.8 % (1.0-4.0); HEMATOCRIT 37.9 % (42.0-52.0); LYMPH # 1.5 10*3/uL (1.3-4.4); LYMPH % 14.7 % (27.0-41.0); MEAN CELL VOLUME 88.6 fl (80.0-94.0); MEAN CORPUSCULAR HGB CONC 31.7 g/dl (33.0-37.0); MEAN PLATELET VOLUME 8.7 fl (9.6-12.3); MONO # 0.8 10*3/uL (0.1-1.0); MONO % 7.8 % (3.0-9.0); NEUT # 7.5 10*3/uL (2.3-7.9); NEUT % 73.9 % (47.0-73.0); PLATELET COUNT AUTOMATED 396 10*3/uL (130-400); RED BLOOD COUNT 4.28 10*6/uL (4.50-5.90); RED CELL DISTRI WIDTH 12.6 % (0-14.5); WHITE BLOOD COUNT 10.2 10*3/uL (4.8-10.8)
[2024-03-18 22:57] LABS: ALKALINE PHOSPHATASE 43 U/L (46-116); BUN 14 mg/dl (9-23); CHLORIDE 104 mmol/L (98-107); CPK 45 U/L (34-171); SGPT/ALT 11 U/L (5-49); TOTAL PROTEIN 7.6 gm/dL (6.0-8.0)
[2024-03-18 23:20] LABS: EPITHELIAL CELLS 0-2; RBC 0-2 rbc/hpf (0-2); WBC 0-2 wbc/hpf (0-5)
[2024-03-18] MEDS ORDERED: Ketorolac Tromethamine 60 MG/2 ML VIAL IM ONE (23:25)
[2024-03-18] MEDS ORDERED: METHOCARBAMOL500 M1 PO (23:27)
[2024-03-18] MEDS ORDERED: NAPROXEN250 MG PO (23:27)
== END 2024-03-19 00:41 | disposition home or self-care (01) ==
LOC: ED 21:44
PROVIDERS: Internal Medicine
DX: M54.50 Low back pain, unspecified (principal); M25.559 Pain in unspecified hip; F41.9 Anxiety disorder, unspecified; F32.A Depression, unspecified; G43.909 Migraine, unspecified, not intractable, without status migrainosus; Z88.8 Allergy status to other drugs, medicaments and biological substances; Z98.890 Other specified postprocedural states; F17.200 Nicotine dependence, unspecified, uncomplicated

== ENCOUNTER 2024-06-24 18:06 | Emergency (ER) | payer MEDICAID ==
[~2024-06-24] VITALS: Ht 172.7 cm; Wt 72.6 kg
[~2024-06-24 18:06] MED LIST changes: +METHOCARBAMOL500 M1 PO; +NAPROXEN250 MG PO
[2024-06-24] MEDS ORDERED: Naloxone Hydrochloride 0.4 MG/ML VIAL ONE (18:16)
[2024-06-24] MEDS ORDERED: hydrALAZINE hydrochloride 25 MG TAB PO ONE (18:50)
[2024-06-24 18:51] LABS: BASO % 0.4 % (0.0-1.0); EOS # 0.2 10*3/uL (0.0-0.4); HEMATOCRIT 31.8 % (42.0-52.0); LYMPH # 1.3 10*3/uL (1.3-4.4); LYMPH % 13.3 % (27.0-41.0); MEAN CELL VOLUME 87.6 fl (80.0-94.0); MEAN CORPUSCULAR HGB 27.8 pg (27.0-31.0); MEAN CORPUSCULAR HGB CONC 31.8 g/dl (33.0-37.0); MEAN PLATELET VOLUME 8.6 fl (9.6-12.3); MONO # 0.8 10*3/uL (0.1-1.0); MONO % 8.7 % (3.0-9.0); NEUT # 7.3 10*3/uL (2.3-7.9); NEUT % 75.3 % (47.0-73.0); PLATELET COUNT AUTOMATED 373 10*3/uL (130-400); RED BLOOD COUNT 3.63 10*6/uL (4.50-5.90); RED CELL DISTRI WIDTH 14.3 % (0-14.5); WHITE BLOOD COUNT 9.7 10*3/uL (4.8-10.8)
[2024-06-24 19:11] LABS: ALKALINE PHOSPHATASE 62 U/L (46-116); BUN 17 mg/dl (9-23); CHLORIDE 102 mmol/L (98-107); POTASSIUM 4.1 mmol/L (3.4-5.1); SGPT/ALT 9 U/L (5-49); TOTAL PROTEIN 7.2 gm/dL (6.0-8.0)
[2024-06-24] MEDS ORDERED: SODIUM CHLORIDE 0.9% 1,000 ML IV ONE (19:40)
[2024-06-24] MEDS ORDERED: Naloxone Hydrochloride 2 MG/2 ML SYR ONE (19:40)
[2024-06-24] MEDS ORDERED: Naloxone Hydrochloride 2 MG/2 ML SYR IV ONE (19:45)
[2024-06-24] MEDS ORDERED: Ondansetron Hydrochloride 4 MG/2 ML VIAL IV ONE (19:45)
[2024-06-24] MEDS ORDERED: Nicotine 21 MG PATCH T ONE (21:55)
[2024-06-24 22:12] LABS: BILIRUBIN Negative (Negative); BLOOD Negative (Negative); CLARITY Clear (Clear); COLOR Yellow (Yellow); GLUCOSE Negative (Negative); KETONE Negative (Negative); LEUKO ESTERASE Negative (Negative); NITRITE Negative (Negative); PH 5.5 (4.5-8.0); UROBILINOGEN 0.2 E.U./dl (0.0-1.0)
[2024-06-24 22:20] LABS: URINE AMPHETAMINES Positive (1000ng/ml); URINE BARBITURATES Negative (200ng/ml); URINE BENZODIAZEPINES Negative (200ng/ml); URINE CANNABINOIDS (THC) Negative (50ng/ml); URINE COCAINE Negative (300ng/ml); URINE METHADONE Negative (300ng/ml); URINE OPIATES Negative (300ng/ml); URINE PHENCYCLIDINE Negative (25ng/ml)
[2024-06-24 22:25] LABS: BACTERIA 1+; MUCOUS 2+
[2024-06-24] MEDS ORDERED: LORazepam 1 MG TAB PO ONE (23:00)
[2024-06-24] MEDS ORDERED: Ketorolac Tromethamine 30 MG/ML VIAL IV ONE (23:00)
[2024-06-25] MEDS ORDERED: ACETAMINOPHEN 325 MG TAB PO ONE (09:00)
== END 2024-06-25 09:06 | disposition home or self-care (01) ==
LOC: ED 18:06
PROVIDERS: Emergency Medicine
DX: T40.2X1A Poisoning by other opioids, accidental (unintentional), initial encounter (principal); R45.851 Suicidal ideations; F19.90 Other psychoactive substance use, unspecified, uncomplicated; R53.83 Other fatigue; F17.200 Nicotine dependence, unspecified, uncomplicated; Z88.1 Allergy status to other antibiotic agents; Z86.14 Personal history of Methicillin resistant Staphylococcus aureus infection; Z79.899 Other long term (current) drug therapy; Y92.89 Other specified places as the place of occurrence of the external cause

== ENCOUNTER 2025-04-21 04:41 | Emergency (ER) | payer MEDICAID ==
[~2025-04-21] VITALS: Ht 190.5 cm; Wt 83.9 kg
[2025-04-21 06:03] LABS: BASO % 0.5 % (0.0-1.0); EOS # 0.1 10*3/uL (0.0-0.4); EOS % 2.4 % (1.0-4.0); HEMATOCRIT 35.3 % (42.0-52.0); MEAN CELL VOLUME 86.5 fl (80.0-94.0); MEAN CORPUSCULAR HGB 28.9 pg (27.0-31.0); MEAN CORPUSCULAR HGB CONC 33.4 g/dl (33.0-37.0); MEAN PLATELET VOLUME 9.4 fl (9.6-12.3); MONO # 0.6 10*3/uL (0.1-1.0); MONO % 9.8 % (3.0-9.0); NEUT # 3.9 10*3/uL (2.3-7.9); PLATELET COUNT AUTOMATED 341 10*3/uL (130-400); RED BLOOD COUNT 4.08 10*6/uL (4.50-5.90); RED CELL DISTRI WIDTH 13.2 % (0-14.5); WHITE BLOOD COUNT 5.8 10*3/uL (4.8-10.8)
[2025-04-21 07:18] LABS: ALKALINE PHOSPHATASE 43 U/L (46-116); BUN 17 mg/dl (9-23); CHLORIDE 106 mmol/L (98-107); POTASSIUM 3.7 mmol/L (3.4-5.1); TOTAL PROTEIN 7.6 gm/dL (6.0-8.0)
[2025-04-21 07:20] LABS: ETHYL ALCOHOL < 3.0 mg/dl (<3); SGPT/ALT < 7 U/L (5-49)
[2025-04-21 08:28] LABS: URINE AMPHETAMINES Positive (1000ng/ml); URINE BARBITURATES Negative (200ng/ml); URINE BENZODIAZEPINES Negative (200ng/ml); URINE CANNABINOIDS (THC) Negative (50ng/ml); URINE COCAINE Positive (300ng/ml); URINE METHADONE Negative (300ng/ml); URINE OPIATES Negative (300ng/ml); URINE PHENCYCLIDINE Negative (25ng/ml)
== END 2025-04-21 12:45 | disposition home or self-care (01) ==
LOC: ED 04:41
PROVIDERS: Emergency Medicine; Internal Medicine
DX: F43.21 Adjustment disorder with depressed mood (principal); F19.20 Other psychoactive substance dependence, uncomplicated; R45.851 Suicidal ideations; R07.81 Pleurodynia; F32.A Depression, unspecified; Z88.1 Allergy status to other antibiotic agents; Z79.899 Other long term (current) drug therapy; Z86.14 Personal history of Methicillin resistant Staphylococcus aureus infection; Z87.891 Personal history of nicotine dependence